=== PATIENT | male | born 1930 | race Caucasian/White ===

== ENCOUNTER 2017-12-18 17:23 | Inpatient (IN) | payer MEDICARE ==
[2017-12-18] MEDS ORDERED: LABETALOL 5 MG/ML VIAL MDV IVP STA ×2 (17:58→18:58)
[2017-12-18 18:05] LABS: Glucose,Whole Blood 194 mg/dL (75-99)
[2017-12-18] MEDS ORDERED: ASPIRIN 325 MG TAB PO STA (18:09)
--- NOTE | 2017-12-18 18:09 | ED ---
General Adult HPI - General Chief complaint: Neuro Symptoms/Deficit Stated complaint: stroke Time Seen by Provider: 12/18/17 17:42 Source: patient, RN notes reviewed Mode of arrival: ambulatory Limitations: no limitations - History of Present Illness Initial comments: Patient is a pleasant 87-year-old male presenting to the emergency Department as a transfer from [facility]. Patient was transferred for concerns of possible stroke. Patient reportedly had speech problems. They did notice slurred speech and aphasia. Patient believes his symptoms have resolved. Patient states his symptoms started around noon. Patient denies any weakness or confusion. Patient did have computed tomography scan done. Patient was transferred secondary to needing neurology evaluation. Patient is symptom-free at this time. - Related Data Home Medications Medication Instructions Recorded Confirmed Apixaban [Eliquis] 2.5 mg PO BID 12/18/17 12/18/17 Atenolol [Tenormin] 50 mg PO BID 12/18/17 12/18/17 Atorvastatin [Lipitor] 40 mg PO DAILY 12/18/17 12/18/17 Diazepam [Valium] 5 mg PO BID PRN 12/18/17 12/18/17 Digoxin [Lanoxin] 125 mcg PO DAILY 12/18/17 12/18/17 Diltiazem HCl [Cardizem LA] 180 mg PO DAILY 12/18/17 12/18/17 Furosemide [Lasix] 20 mg PO DAILY 12/18/17 12/18/17 Potassium Chloride [Klor-Con 20] 20 meq PO DAILY 12/18/17 12/18/17 Allergies Allergy/AdvReac Type Severity Reaction Status Date / Time ciprofloxacin Allergy Unknown Verified 12/18/17 17:40 insulin lispro Allergy Unknown Verified 12/18/17 17:40 ofloxacin [From Floxin] Allergy Unknown Verified 12/18/17 17:40 trovafloxacin [From Trovan] Allergy Unknown Verified 12/18/17 17:40 Review of Systems ROS Statement: Those systems with pertinent positive or pertinent negative responses have been documented in the HPI. ROS Other: All systems not noted in ROS Statement are negative. Constitutional: Denies: fever Eyes: Denies: eye pain ENT: Denies: ear pain Respiratory: Denies: cough Cardiovascular: Denies: chest pain Endocrine: Denies: fatigue Gastrointestinal: Denies: abdominal pain Genitourinary: Denies: dysuria Musculoskeletal: Denies: back pain Skin: Denies: rash Neurological: Denies: headache, weakness, confusion Past Medical History Past Medical History: COPD, CVA/TIA, Diabetes Mellitus, Hypertension Additional Past Medical History / Comment(s): CKD stage 3, hyponatremia, Urine retention History of Any Multi-Drug Resistant Organisms: None Reported Additional Past Surgical History / Comment(s): Carotid Endarterectomy, Prostate surgery, Cardiac Pacemaker, Bladder surgery Past Psychological History: No Psychological Hx Reported Smoking Status: Never smoker Past Alcohol Use History: None Reported Past Drug Use History: None Reported General Exam Limitations: no limitations General appearance: alert, in no apparent distress Head exam: Present: atraumatic Eye exam: Present: normal appearance, PERRL, EOMI, nystagmus (There does appear to be some minimal horizontal nystagmus) ENT exam: Present: normal oropharynx Neck exam: Present: normal inspection Respiratory exam: Present: normal lung sounds bilaterally Cardiovascular Exam: Present: regular rate, normal rhythm GI/Abdominal exam: Present: soft. Absent: tenderness Extremities exam: Present: normal inspection Neurological exam: Present: alert, oriented X3, CN II-XII intact. Absent: motor sensory deficit Expanded Neurological exam: Present: protecting the airway Patient oriented to: Present: person, place, time Speech: Present: fluid speech. Absent: expressive aphasia Cranial nerves: EOM's Intact: Normal, Facial Sensation: Normal Sensory exam: Upper Extremity Light Touch: Normal, Lower Extremity Light Touch: Normal Motor strength exam: RUE: 5, LUE: 5, RLE: 5, LLE: 5 Eye Response: (4) open spontaneously Motor Response: (6) obeys commands Verbal Response: (5) oriented Psychiatric exam: Present: normal affect, normal mood Skin exam: Present: normal color Course Vital Signs 12/18/17 17:24 Temperature 98.6 F Pulse Rate 76 Respiratory 18 Rate Blood Pressure 203/87 O2 Sat by Pulse 97 Oximetry - Reevaluation(s) Reevaluation #1: 12/18/17 18:09 Patient is not a candidate for TPA secondary to onset of symptoms now 6 hours ago. In addition patient has resolution of symptoms. Medical Decision Making - Medical Decision Making Case was discussed in detail with practitioner Bibiana lopezch, who will admit for Dr. Sandy, covering for Dr. Snow. Patient was updated. - Radiology Data Radiology results: report reviewed Disposition Clinical Impression: Cerebrovascular accident Disposition: ADMITTED IP TO THIS HOSP Is patient prescribed a controlled substance at d/c from ED?: No Referrals: Lola Pierce MD [Primary Care Provider] - 1-2 days Decision Time: 18:09
[2017-12-18] MEDS ORDERED: DIAZEPAM 5 MG TAB PO PRN (18:15)
[2017-12-18] MEDS: SODIUM CHLORIDE 0.9% 1,000 ML IV SCH (18:33)
[2017-12-18 19:43] LABS: Appearance,Urine Turbid (Clear); Bacteria,Urine Many /hpf; Bilirubin,Urine Negative (Negative); Blood,Urine Moderate (Negative); Budding Yeast,Urine Many /hpf; Color,Urine Yellow; Glucose,Urine (UA) Negative (Negative); Ketones,Urine Negative (Negative); Leukocyte Esterase,Urine Large (Negative); Nitrite,Urine Negative (Negative); PH, Urine 6.5 (5.0-8.0); Protein,Urine 2+ (Negative); RBC,Urine 138 /hpf (0-5); Specific Gravity,Urine 1.013 (1.001-1.035); Urobilinogen,Urine <2.0 mg/dL (<2.0); WBC,Urine >182 /hpf (0-5)
[2017-12-18] MEDS: ATENOLOL 50 MG TAB PO SCH (20:38)
[2017-12-18] MEDS: APIXABAN 2.5 MG TABLET PO SCH (20:38)
[2017-12-18 21:11] LABS: Glucose,Whole Blood 235 mg/dL (75-99)
[2017-12-18 23:01] VITALS: RESP 18
[2017-12-19] MEDS: SODIUM CHLORIDE 0.9% 1,000 ML IV SCH (04:41)
[2017-12-19 05:12] LABS: Cholesterol 62 mg/dL (<200); HDL Cholesterol 25 mg/dL (40-60); LDL Cholesterol,Calculated 15 mg/dL (0-99); Triglycerides 112 mg/dL (<150)
[2017-12-19 06:09] LABS: Glucose,Whole Blood 159 mg/dL (75-99)
[2017-12-19] MEDS ORDERED: FUROSEMIDE 20 MG TAB PO SCH (09:00)
[2017-12-19] MEDS ORDERED: DILTIAZEM CD 180 MG CAP.ER.24H PO SCH (09:00)
[2017-12-19] MEDS ORDERED: ATORVASTATIN 40 MG TAB PO SCH (09:00)
[2017-12-19] MEDS ORDERED: POTASSIUM CHLORIDE ER 20 MEQ TAB.ER PO SCH (09:00)
[2017-12-19] MEDS ORDERED: ASPIRIN 325 MG TAB PO SCH (09:00)
[2017-12-19] MEDS: APIXABAN 2.5 MG TABLET PO SCH (09:02)
[2017-12-19] MEDS: ATENOLOL 50 MG TAB PO SCH (09:02)
[2017-12-19 11:46] LABS: Glucose,Whole Blood 197 mg/dL (75-99)
--- NOTE | 2017-12-19 12:14 | P.HPIM ---
History of Present Illness 61-year-old pleasant gentleman with history of cerebral vascular and accident in the past with residual weakness on the left side of the face with the facial droop came in with complaints of slurred speech was started yesterday which completely resolved at this point of time after few hours. Patient does have history of atrial fibrillation is on anticoagulation with Eliquis, rate controlled on Cardizem and on digoxin with normal dig levels. Patient denied any other weakness denied any tingling numbness. Patient CAT scan of the head did show some old ischemic changes along with some ischemic changes in the parameters which are also old although his symptomatology is not consistent with CT findings. Patient does have history of diabetes mellitus diuretic nephropathy with the stage III chronic kidney disease uses Lasix at home follows up with nephrology as an outpatient follows with cardiology as an outpatient. Patient declined carotid Doppler as it was done in couple months ago and [facility] which is appropriate echocardiogram was done. Patient had normal ejection fraction the past. He declined PT and OT evaluation. Patient wanted to be discharged. Patient is already on a statin 40 mg with LDL of around 60. Any further antiplatelet therapy will put him at a higher risk for bleeding. As per the wishes of the patient's patient will be discharged today to follow with his neurologist as an outpatient. I recommended neurological evaluation here but patient wanted to be discharged and I do not believe any further workup is necessary at this time. Discussed the CODE STATUS of the patient patient is DO NOT RESUSCITATE. Patient's urine is significantly abnormal, patient does do straight catheterization at home. Patient denied any symptoms of dysuria or increased urinary frequency patient has mild leukocytosis of 10,000 doesn't have any fever. Because of the history and catheterization history patient may have a symptom any bacteria but definitely higher risk because of his straight catheterization because of which I will give him antibiotic Ceftin for 5 days to treat his bacteriuria or urinary tract infection Review of Systems REVIEW OF SYSTEMS: CONSTITUTIONAL: No fever, no malaise, no fatigue. HEENT: No recent visual problems or hearing problems. Denied any sore throat. CARDIOVASCULAR: No chest pain, orthopnea, PND, no palpitations, no syncope. PULMONARY: No shortness of breath, no cough, no hemoptysis. GASTROINTESTINAL: No diarrhea, no nausea, no vomiting, no abdominal pain. Normoactive bowel sounds. NEUROLOGICAL: No headaches, no weakness, no numbness. HEMATOLOGICAL: Denies any bleeding or petechiae. GENITOURINARY: Denies any burning micturition, frequency, or urgency. MUSCULOSKELETAL/RHEUMATOLOGICAL: Denies any joint pain, swelling, or any muscle pain. ENDOCRINE: Denies any polyuria or polydipsia. The rest of the 14-point review of systems is negative. 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 History of Any Multi-Drug Resistant Organisms: None Reported Additional Past Surgical History / Comment(s): Carotid Endarterectomy, Prostate surgery, Cardiac Pacemaker, Bladder surgery Past Anesthesia/Blood Transfusion Reactions: No Reported Reaction Smoking Status: Never smoker - Past Family History Father Family Medical History: Cancer Additional Family Medical History / Comment(s): lung cancer Mother Family Medical History: Cancer Additional Family Medical History / Comment(s): at age 44 Medications and Allergies Home Medications Medication Instructions Recorded Confirmed Type Apixaban [Eliquis] 2.5 mg PO BID 12/18/17 12/18/17 History Atenolol [Tenormin] 50 mg PO BID 12/18/17 12/18/17 History Atorvastatin [Lipitor] 40 mg PO DAILY 12/18/17 12/18/17 History Diazepam [Valium] 5 mg PO BID PRN 12/18/17 12/18/17 History Digoxin [Lanoxin] 125 mcg PO DAILY 12/18/17 12/18/17 History Diltiazem HCl [Cardizem LA] 180 mg PO DAILY 12/18/17 12/18/17 History Furosemide [Lasix] 20 mg PO DAILY 12/18/17 12/18/17 History Linagliptin [Tradjenta] 5 mg PO DAILY 12/18/17 12/18/17 History Magnesium 12/18/17 History Omeprazole [PriLOSEC] 20 mg PO AC-BID 12/18/17 12/18/17 History Potassium Chloride [Klor-Con 20] 20 meq PO DAILY 12/18/17 12/18/17 History Cefuroxime Axetil [Ceftin] 500 mg PO BID #6 tab 12/19/17 Rx PARoxetine HCL [Paxil] 10 mg PO DAILY #30 tab 12/19/17 Rx Allergies Allergy/AdvReac Type Severity Reaction Status Date / Time ciprofloxacin Allergy Unknown Verified 12/18/17 17:40 insulin lispro Allergy Unknown Verified 12/18/17 17:40 ofloxacin [From Floxin] Allergy Unknown Verified 12/18/17 17:40 trovafloxacin [From Trovan] Allergy Unknown Verified 12/18/17 17:40 Physical Exam Vitals: Vital Signs Temp Pulse Pulse Resp BP BP Pulse Ox 12/19/17 08:00 97.3 F L 55 L 18 118/42 97 12/19/17 04:00 98.2 F 61 18 127/51 96 12/18/17 23:58 73 18 12/18/17 23:56 98.0 F 73 18 110/53 96 12/18/17 20:00 97.6 F 77 18 133/79 96 12/18/17 19:18 98.9 F 71 16 208/80 98 12/18/17 19:00 75 16 210/78 98 12/18/17 18:30 71 16 194/78 98 12/18/17 18:00 74 16 206/80 98 12/18/17 17:30 76 18 215/80 98 12/18/17 17:24 98.6 F 76 18 203/87 97 Intake and Output 12/18/17 12/19/17 12/19/17 22:59 06:59 14:59 Intake Total 800 800 300 Output Total 400 Balance 800 400 300 Intake: Intake, IV Titration 800 800 Amount Sodium Chloride 0.9% 1, 800 800 000 ml @ 100 mls/hr IV . Q10H [facility] Rx#:[id number] Oral 300 Output: Urine 400 Other: Voiding Method Self-Catheterization Self-Catheterization Self-Catheterization Weight 84.368 kg 77.2 kg PHYSICAL EXAMINATION: GENERAL: The patient is alert and oriented x3, not in any acute distress. Well developed, well nourished. HEENT: Pupils are round and equally reacting to light. EOMI. No scleral icterus. No conjunctival pallor. Normocephalic, atraumatic. No pharyngeal erythema. No thyromegaly. CARDIOVASCULAR: S1 and S2 present. No murmurs, rubs, or gallops. PULMONARY: Chest is clear to auscultation, no wheezing or crackles. ABDOMEN: Soft, nontender, nondistended, normoactive bowel sounds. No palpable organomegaly. MUSCULOSKELETAL: No joint swelling or deformity. EXTREMITIES: No cyanosis, clubbing, or pedal edema. NEUROLOGICAL: Gross neurological examination did not reveal any focal deficits. SKIN: No rashes. Results Labs: Abnormal Lab Results - Last 24 Hours (Table) 12/18/17 12/18/17 12/18/17 Range/Units 18:03 18:44 19:13 POC Glucose (mg/dL) 194 H (75-99) mg/dL HDL Cholesterol 25 L (40-60) mg/dL Urine Protein 2+ H (Negative) Urine Blood Moderate H (Negative) Ur Leukocyte Esterase Large H (Negative) Urine RBC 138 H (0-5) /hpf Urine WBC >182 H (0-5) /hpf Urine WBC Clumps Many H (None) /hpf Urine Bacteria Many H (None) /hpf Urine Yeast (Budding) Many H (None) /hpf 12/18/17 12/19/17 12/19/17 Range/Units 21:10 06:07 11:33 POC Glucose (mg/dL) 235 H 159 H 197 H (75-99) mg/dL HDL Cholesterol (40-60) mg/dL Urine Protein (Negative) Urine Blood (Negative) Ur Leukocyte Esterase (Negative) Urine RBC (0-5) /hpf Urine WBC (0-5) /hpf Urine WBC Clumps (None) /hpf Urine Bacteria (None) /hpf Urine Yeast (Budding) (None) /hpf Thrombosis Risk Factor Assmnt - Choose All That Apply Any of the Below Risk Factors Present?: Yes Each Factor Represents 1 point: Abnormal pulmonary function (COPD) Other Risk Factors: Yes Each Risk Factor Represents 3 Points: Age 75 years or older Other congenital or acquired thrombophilia - If yes, enter type in comment: Yes Each Risk Factor Represents 5 Points: Stroke (< 1 month) Thrombosis Risk Factor Assessment Total Risk Factor Score: 9 Thrombosis Risk Factor Assessment Level: High Risk Assessment and Plan Plan: -Possible transient ischemic attack: Further management as discussed in HPI itself no additional antiplatelet therapy will be added to his regimen. 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
--- NOTE | 2017-12-19 12:15 | P.DS ---
Providers Date of admission: 12/18/17 18:09 Attending physician: Joe Sandy Primary care physician: Kari Davila [facility] Course: Please refer to my HPI Plan - Discharge Summary Discharge Rx Participant: No New Discharge Prescriptions: New Cefuroxime Axetil [Ceftin] 500 mg PO BID #6 tab PARoxetine HCL [Paxil] 10 mg PO DAILY #30 tab No Action Potassium Chloride [Klor-Con 20] 20 meq PO DAILY Digoxin [Lanoxin] 125 mcg PO DAILY Atorvastatin [Lipitor] 40 mg PO DAILY Apixaban [Eliquis] 2.5 mg PO BID Furosemide [Lasix] 20 mg PO DAILY Diazepam [Valium] 5 mg PO BID PRN PRN Reason: Anxiety Atenolol [Tenormin] 50 mg PO BID Diltiazem HCl [Cardizem LA] 180 mg PO DAILY Linagliptin [Tradjenta] 5 mg PO DAILY Omeprazole [PriLOSEC] 20 mg PO AC-BID Magnesium Discharge Medication List Apixaban [Eliquis] 2.5 mg PO BID 12/18/17 [History] Atenolol [Tenormin] 50 mg PO BID 12/18/17 [History] Atorvastatin [Lipitor] 40 mg PO DAILY 12/18/17 [History] Diazepam [Valium] 5 mg PO BID PRN 12/18/17 [History] Digoxin [Lanoxin] 125 mcg PO DAILY 12/18/17 [History] Diltiazem HCl [Cardizem LA] 180 mg PO DAILY 12/18/17 [History] Furosemide [Lasix] 20 mg PO DAILY 12/18/17 [History] Linagliptin [Tradjenta] 5 mg PO DAILY 12/18/17 [History] Magnesium 12/18/17 [History] Omeprazole [PriLOSEC] 20 mg PO AC-BID 12/18/17 [History] Potassium Chloride [Klor-Con 20] 20 meq PO DAILY 12/18/17 [History] Cefuroxime Axetil [Ceftin] 500 mg PO BID #6 tab 12/19/17 [Rx] PARoxetine HCL [Paxil] 10 mg PO DAILY #30 tab 12/19/17 [Rx] Follow up Appointment(s)/Referral(s): Lola Pierce MD [Primary Care Provider] - 05/25/18 9:50 am (Sunday.) Patient Instructions/Handouts: Urinary Tract Infection in Men (DC), How to Catheterize Yourself (Man) (GEN), Stroke (DC) Discharge Disposition: HOME WITH HOME HEALTH SERVICES
[2017-12-19 12:18] VITALS: BP 120/48; PULSE 59; TEMP 97.5
--- NOTE | 2017-12-19 20:20 | ECHOF ---
Referral Reason:Thrombus MEASUREMENTS -------- HEIGHT: 180.3 cm WEIGHT: 77.1 kg BP: 127/51 RVIDd: 3.7 cm (< 3.3) IVSd: 1.5 cm (0.6 - 1.1) LVIDd: 4.6 cm (3.9 - 5.3) LVPWd: 1.2 cm (0.6 - 1.1) IVSs: 1.8 cm LVIDs: 3.5 cm LVPWs: 1.8 cm LA Diam: 4.3 cm (2.7 - 3.8) LAESV Index (A-L): 45.75 ml/m Ao Diam: 4.0 cm (2.0 - 3.7) AV Cusp: 2.4 cm (1.5 - 2.6) MV EXCURSION: 15.618 mm (> 18.000) MV EF SLOPE: 44 mm/s (70 - 150) EPSS: 0.6 cm RAP: 15.00 mmHg RVSP: 64.92 mmHg FINDINGS -------- Atrial fibrillation. Pacerwire seen in RV and RA. This was a technically adequate study. The left ventricular size is normal. There is moderate concentric left ventricular hypertrophy. O verall left ventricular systolic function is low-normal with, an EF between 50 - 55 %. The right ventricle is mildly enlarged. LA is severely dilated >40 ml/m2 The right atrium is normal in size. There is mild aortic valve sclerosis. Moderate mitral annular calcification present. Mild mitral regurgitation is present. Moderate tricuspid regurgitation present. There is moderate to severe pulmonary hypertension. The right ventricular systolic pressure, as measured by Doppler, is 64.92mmHg. The pulmonic valve was not well visualized. There is no pulmonic regurgitation present. The aortic root is dilated measuring 4.0cm. The inferior vena cava is dilated with no significant inspiratory collapse which is consistent estima jaida right atrial pressure of >15 mmHg. There is no pericardial effusion. CONCLUSIONS -------- 1. Pacerwire seen in RV and RA. 2. This was a technically adequate study. 3. The left ventricular size is normal. 4. There is moderate concentric left ventricular hypertrophy. 5. Overall left ventricular systolic function is low-normal with, an EF between 50 - 55 %. 6. The right ventricle is mildly enlarged. 7. LA is severely dilated >40 ml/m2 8. There is mild aortic valve sclerosis. 9. Moderate mitral annular calcification present. 10. Mild mitral regurgitation is present. 11. Moderate tricuspid regurgitation present. 12. There is moderate to severe pulmonary hypertension. 13. The pulmonic valve was not well visualized. 14. There is no pulmonic regurgitation present. 15. The aortic root is dilated measuring 4.0cm. 16. The inferior vena cava is dilated with no significant inspiratory collapse which is consistent es timated right atrial pressure of >15 mmHg. 17. There is no pericardial effusion. HOUSE NURSE: Lindy Carson RDCS
[2017-12-20] MEDS ORDERED: DIGOXIN 125 MCG TAB PO SCH (09:00)
[2017-12-20] MEDS ORDERED: LINAGLIPTIN 5 MG TABLET PO SCH (09:00)
--- NOTE | 2017-12-25 08:19 | CDI ---
Last Revision, July 2017 Documentation Clarification Form Date: 12/24/17 From: Yaritza Tillman Phone: If you have a question regarding this query, please contact Milly Chaney at [phone] between 8am and 5pm. Admit Date: 12/18/2017 6:09:00 PM Patient Name: Joshua Nixon Visit Number: [id number] Discharge Date: 12/19/17 ATTENTION: The Clinical Documentation Specialists (CDI) and [facility] Coding Staff appreciate your assistance in clarifying documentation. Please respond to the clarification below the line at the bottom and electronically sign. The CDI & [facility] Coding staff will review the response and follow-up if needed. Please note: Queries are made part of the Legal Health Record. If you have any questions, please contact the author of this message via ITS. Dr. Joe Sandy Atrial fibrillation is documented in the H&P History/Risk Factors: Patient was admitted for TIA and has a history of hypertension and chronic kidney disease. EKG/telemetry: Atrial fibrillation with premature ventricular or aberrantly conducted complexes Treatment: Patient is on Eliquis In your professional opinion, can you please clarify the type of atrial fibrillation, if known? Chronic/Permanent Paroxysmal Persistent Other, please specify Unable to determine Paroxysmal A. fib MTDD
== END 2017-12-19 12:50 | disposition home or self-care (01) | DRG 69 ==
LOC: EC 17:23 → 6SEL 18:09
PROVIDERS: ADMIT Internal Medicine; ATTEND Internal Medicine
DX: G45.9 Transient cerebral ischemic attack, unspecified (principal); E11.22 Type 2 diabetes mellitus with diabetic chronic kidney disease; I48.0 Paroxysmal atrial fibrillation; J44.9 Chronic obstructive pulmonary disease, unspecified; R82.71 Bacteriuria; E78.5 Hyperlipidemia, unspecified; I12.9 Hypertensive chronic kidney disease with stage 1 through stage 4 chronic kidney disease, or unspecified chronic kidney disease; K21.9 Gastro-esophageal reflux disease without esophagitis; N18.3 Chronic kidney disease, stage 3 (moderate); N40.0 Benign prostatic hyperplasia without lower urinary tract symptoms; I69.992 Facial weakness following unspecified cerebrovascular disease; R29.700 NIHSS score 0; Z66 Do not resuscitate; Z79.01 Long term (current) use of anticoagulants; Z79.899 Other long term (current) drug therapy; Z88.1 Allergy status to other antibiotic agents; Z88.8 Allergy status to other drugs, medicaments and biological substances; Z95.0 Presence of cardiac pacemaker; Z80.1 Family history of malignant neoplasm of trachea, bronchus and lung
CPT/HCPCS: 36415; 80061; 80162; 81001; 93005; 93306; 96361; 96374; 96376; 99285

== ENCOUNTER 2018-05-07 10:32 | Day surgery (SDC) | payer MEDICARE ==
[2018-05-01 13:14] VITALS: BMI 25.4
[~2018-05-07 10:32] MED LIST: CLINDAMYCIN 900 MG in DEXTROSE 5% IN WATER 50 ML IVPB ONE; SODIUM CHLORIDE 0.9% 1,000 ML IV SCH
[2018-05-07 11:03] VITALS: TEMP 97.8
[2018-05-07 11:16] LABS: Glucose,Whole Blood 164 mg/dL (75-99)
[2018-05-07 11:25] LABS: Basophils # (A) 0.1 k/uL (0-0.2); Basophils % (A) 1 %; Eosinophils # (A) 0.3 k/uL (0-0.7); Eosinophils % (A) 3 %; HGB 10.6 gm/dL (13.0-17.5); Lymphocytes # (A) 1.5 k/uL (1.0-4.8); Lymphocytes % (A) 16 %; MCH 28.3 pg (25.0-35.0); MCHC 32.1 g/dL (31.0-37.0); MCV 88.1 fL (80.0-100.0); Mean Platelet Volume 7.1; Monocytes # (A) 0.5 k/uL (0-1.0); Monocytes % (A) 5 %; Neutrophils # (A) 6.8 k/uL (1.3-7.7); Neutrophils % (A) 74 %; Platelet Count 226 k/uL (150-450); RBC 3.75 m/uL (4.30-5.90); RDW 13.4 % (11.5-15.5); WBC 9.3 k/uL (3.8-10.6)
[2018-05-07 11:35] LABS: Calcium 9.2 mg/dL (8.4-10.2)
[2018-05-07] MEDS ORDERED: fentaNYL (PF) 50 MCG/ML 2 ML AMP IV ONE (12:30)
[2018-05-07] MEDS ORDERED: LIDOCAINE 1% INJ 10MG/ML (20 ML MDV) SQ ONE ×2 (12:33)
[2018-05-07] MEDS ORDERED: hydrALAZINE HCL 20 MG/ML 1 ML VIAL IV ONE (12:37)
[2018-05-07] MEDS: CLINDAMYCIN 600 MG in SODIUM CHLORIDE 0.9% IRRIGATIO 250 ML IRRIGATION ONE ×2 (12:37→12:42)
[2018-05-07] MEDS ORDERED: ACETAMINOPHEN TAB 325 MG TAB PO PRN (12:58)
[2018-05-07] MEDS ORDERED: ACETAMINOPHEN IV (For NPO) 1,000 MG in EMPTY BAG 1 BAG IVPB ONE (12:58)
--- NOTE | 2018-05-07 13:11 | P.PCN ---
Date of Procedure: 05/07/18 Preoperative Diagnosis: Battery depletion Postoperative Diagnosis: The same Procedure(s) Performed: Replacement of the battery Description of Procedure: HISTORY: This is a 88-year-old gentleman with history of single-chamber permanent pacemaker implantation. Patient was found to have evidence of battery depletion and reaching NEPTALI. He is advised to have replacement of the battery. CONSENT: I have discussed the risks and benefits as related to the above mentioned procedure and both sedation/analgesia as well as necessary blood product administration. The patient has indicated understanding and acceptance of the risks of the procedure discussed. PROCEDURE: Patient was brought to the lab in a fasting state. Patient was given IV fentanyl for sedation. The skin over the existing pulse generator was infiltrated with lidocaine. An incision was made in the skin and was deepened until the pectoral fascia was exposed. Hemostasis was obtained. The existing pulse generator was pulled out of the pocket. The leads were disconnected and were checked for thresholds. Conscious Sedation: Versed 0mg Fentanyl 25 g Duration 19 minutes THRESHOLDS: VENTRICULAR: The minimum patient threshold was 0.7 at a pulse width of 0.5. The impedance is 372 ohms R-wave:. 5.5 THE LEADS: VENTRICULAR: This is manufactured by [employer]. Model number is [id number] and the serial number is [id number]. THE EXPLANTED DEVICE: This is manufactured by [employer]. Model number is [id number] and the serial number is [id number] THE NEW DEVICE:. This is manufactured by [employer]. Model number is [id number] and the serial number is [id number]. The leads were then connected to a new pulse generator. Pacemaker seems to function normally. The pocket was irrigated with antibiotics. The pocket was closed in the usual fashion. Pectoral fascia was closed with 2-0 Prolene, the subcutaneous tissue was closed with 3-0 Prolene and the skin was closed with 4- 0 Prolene. Patient tolerated the procedure well . Patient will be monitored on the telemetry unit for 2-3 hours. If stable patient be discharged home later today. PROGRAMMING: Programmed to VVIR mode. Lower rate is 60 and upper rate is 130. The output is programmed to 2.5 V PLAN: Patient will monitor for the next several hours. If stable patient will be discharged home. He'll continue home medications along with Cleocin 300 mg 3 times a day for 3 days. He will also hold Eliquis for 24-48 hours. FALLOW UP: With Dr. Franklin in about one week
[2018-05-07 13:39] VITALS: RESP 18
[2018-05-07] MEDS ORDERED: amLODIPine 5 MG TAB PO STA (14:13)
[2018-05-07] MEDS ORDERED: amLODIPine 5 MG TAB ONE (14:14)
[2018-05-07] MEDS ORDERED: hydrALAZINE HCL 20 MG/ML 1 ML VIAL IVP STA (15:10)
[2018-05-07 16:01] VITALS: BP 149/63; PULSE 67
[2018-05-09 11:20] LABS: Iron Saturation 12.28 (15.00-50.00)
[2018-05-09 13:43] LABS: Hemoglobin A1C 7.7 % (4.0-6.0)
== END 2018-05-07 16:06 | disposition home or self-care (01) ==
LOC: CATHEP 10:32
PROVIDERS: ATTEND Internal Medicine Cardiovascular Disease
DX: I48.1 Persistent atrial fibrillation (principal); Z45.010 Encounter for checking and testing of cardiac pacemaker pulse generator [battery]; E11.51 Type 2 diabetes mellitus with diabetic peripheral angiopathy without gangrene; E11.22 Type 2 diabetes mellitus with diabetic chronic kidney disease; I12.9 Hypertensive chronic kidney disease with stage 1 through stage 4 chronic kidney disease, or unspecified chronic kidney disease; N18.9 Chronic kidney disease, unspecified; Z79.84 Long term (current) use of oral hypoglycemic drugs; E78.2 Mixed hyperlipidemia; Z79.01 Long term (current) use of anticoagulants; Z79.899 Other long term (current) drug therapy; Z88.1 Allergy status to other antibiotic agents
CPT/HCPCS: 33227; 80048; 85025; C1786; J0360; J2001; J3010; 83036; 83540; 83550